=== PATIENT | male | born 1965 | race Caucasian/White ===

== ENCOUNTER 2022-09-14 16:08 | Emergency (ER) | payer BC ==
[2022-09-14] MEDS ORDERED: Adenosine 6 MG/2 ML SDV IVPUSH ONE (16:27)
[2022-09-14] MEDS ORDERED: Adenosine 6 MG/2 ML SDV ONE (16:28)
[2022-09-14] MEDS ORDERED: Adenosine 12 MG/4 ML SDV ONE (16:29)
[2022-09-14 17:29] LABS: ANION GAP 14.6 mEq/L (7-13)
== END 2022-09-14 17:48 | disposition home or self-care (01) ==
LOC: DL.ED 16:08
DX: I47.1 Supraventricular tachycardia (principal); Z79.82 Long term (current) use of aspirin
CPT/HCPCS: 36415; 80053; 83605; 84484; 85025; 93005; 96374; 99285; J0153